=== PATIENT | male | born 1995 | race Hispanic/Latino ===

== ENCOUNTER 2022-06-05 09:46 | Emergency (ER) | payer SELFPAY ==
[2022-06-05 11:04] LABS: Basophils # (Auto) 0.1 K/mm3 (0.0-0.1); Basophils % (Auto) 0.9 % (0.0-1.8); Eosinophils # (Auto) 0.2 K/mm3 (0.0-0.4); Eosinophils % (Auto) 3.3 % (0.0-4.3); Hematocrit 42.9 % (35.5-45.6); Hemoglobin 15.1 gm/dl (11.8-15.2); Lymphocytes # (Auto) 1.2 K/mm3 (1.2-5.4); Lymphocytes % (Auto) 16.8 % (13.4-35.0); Mean Corpuscular HGB Conc 35 % (32-34); Mean Corpuscular Volume 84 fl (84-94); Monocytes # (Auto) 0.5 K/mm3 (0.0-0.8); Platelet Count 138 K/mm3 (140-440); Red Blood Count 5.12 M/mm3 (3.65-5.03); Red Cell Distribution Width 13.5 % (13.2-15.2)
[2022-06-05] MEDS ORDERED: SODIUM CHLORIDE 0.9% 1000 ML 1,000 ML IV ONE ×2 (12:03→13:47)
--- NOTE | 2022-06-05 12:29 | Emergency Department Report ---
ED Syncope HPI - General Chief Complaint: Syncope Stated Complaint: WEAKNESS/SYNCOPAL EPISODE Time Seen by Provider: 06/05/22 10:42 - History of Present Illness Initial Comments: Patient is a 26-year-old male brought in by EMS status post syncopal event. States he was preparing to weed whack when he had a sudden episode of nausea vomiting. States he panicked and began to hyperventilate and eventually passed out. He denies any past medical history. Denies any chest pain, palpitations or shortness of breath. - Related Data Allergies/Adverse Reactions: Allergies No Known Allergies Allergy (Unverified 06/05/22 09:58) Home Medications: Ambulatory Orders No Known Home Medications [No Reported Home Medications] 06/05/22 ED Review of Systems ROS: Stated complaint: WEAKNESS/SYNCOPAL EPISODE Other details as noted in HPI Constitutional: denies: chills, fever Respiratory: denies: cough, shortness of breath, wheezing Cardiovascular: denies: chest pain, palpitations Gastrointestinal: denies: abdominal pain, nausea, diarrhea Genitourinary: denies: urgency, dysuria Musculoskeletal: denies: back pain, joint swelling, arthralgia Skin: denies: rash, lesions Neurological: denies: headache, weakness, paresthesias Psychiatric: denies: anxiety, depression ED Past Medical Hx - Past Medical History Previous Medical History?: No - Medications Home Medications: Home Medications Medication Instructions Recorded Confirmed Last Taken Type No Known Home Medications [No 06/05/22 06/05/22 Unknown History Reported Home Medications] ED Physical Exam - General Limitations: No Limitations General appearance: alert, in no apparent distress - Head Head exam: Present: atraumatic, normocephalic - Respiratory Respiratory exam: Present: normal lung sounds bilaterally. Absent: respiratory distress - Cardiovascular Cardiovascular Exam: Present: regular rate, normal rhythm, normal heart sounds - GI/Abdominal GI/Abdominal exam: Present: soft. Absent: distended, tenderness - Rectal Rectal exam: Present: deferred - Neurological Exam Neurological exam: Present: alert, oriented X3 - Psychiatric Psychiatric exam: Present: normal affect, normal mood - Skin Skin exam: Present: warm, dry, intact, normal color ED Course Vital Signs 06/05/22 06/05/22 06/05/22 09:46 10:11 10:16 Temperature 98.3 F Pulse Rate 67 79 Respiratory 16 18 Rate Blood Pressure 119/80 Blood Pressure 134/81 [Left] O2 Sat by Pulse 99 98 98 Oximetry 06/05/22 06/05/22 06/05/22 10:30 10:46 11:00 Temperature Pulse Rate 87 82 71 Respiratory 20 21 16 Rate Blood Pressure 119/80 111/77 111/77 Blood Pressure [Left] O2 Sat by Pulse 98 99 100 Oximetry 06/05/22 06/05/22 06/05/22 11:16 11:26 11:30 Temperature Pulse Rate 69 73 Respiratory 22 21 Rate Blood Pressure 111/77 113/73 Blood Pressure [Left] O2 Sat by Pulse 98 99 99 Oximetry 06/05/22 06/05/22 06/05/22 11:46 12:00 12:16 Temperature Pulse Rate 76 63 55 L Respiratory 16 19 18 Rate Blood Pressure 108/76 108/76 108/76 Blood Pressure [Left] O2 Sat by Pulse 99 99 100 Oximetry 06/05/22 12:30 Temperature Pulse Rate 62 Respiratory 21 Rate Blood Pressure 108/76 Blood Pressure [Left] O2 Sat by Pulse 100 Oximetry ED Medical Decision Making - Lab Data Result diagrams: 06/05/22 10:51 - EKG Data -: EKG Interpreted by Tn EKG shows normal: sinus rhythm, axis, intervals, QRS complexes, ST-T waves Rate: bradycardia - EKG Data 06/05/22 14:25 Sinus arrhythmia - Medical Decision Making While performing orthostatics. Patient's pulse increased from 70s to 110s. Patient given 1 L bolus with similar change in pulse on repeat orthostatics. Hospitalist consulted for admission. Requested additional 1 L bolus and will evaluate in the emergency department. Critical care attestation.: If time is entered above; I have spent that time in minutes in the direct care of this critically ill patient, excluding procedure time. ED Disposition Clinical Impression: Orthostatic syncope Disposition: 01 HOME / SELF CARE / HOMELESS Is pt being admited?: No Condition: Stable Instructions: Syncope (ED), Orthostatic Hypotension Referrals: TARA SCHMIDT MD [Primary Care Provider] - 3-5 Days Forms: AMA Form Time of Disposition: 14:37
--- NOTE | 2022-06-05 14:35 | Event Note ---
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
[2022-06-05 15:26] VITALS: BP 131/77
--- NOTE | 2022-06-09 09:34 | Electrocardiograph Report ---
[facility] Test Date: 2022-06-05 Test Time: 12:33:41 Pat Name: SALOME JHAVERI Department: Room: Gender: M [employer]: CIRO : 1995 Requested By: DEQUAN KAPADIA Order Number: [id number] Reading MD: Ranjeet Wells Measurements Intervals [place] Rate: 56 P: 8 MA: 158 QRS: 12 QRSD: 103 T: 32 QT: 432 QTc: 419 Interpretive Statements Slow sinus arrhythmia No previous ECG available for comparison Electronically Signed On 06-09-2022 9:34:00 EDT by Ranjeet Wells
== END 2022-06-05 15:28 | disposition home or self-care (01) ==
LOC: ED 09:46
DX: R55 Syncope and collapse (principal)
CPT/HCPCS: 36415; 84484; 85025; 93005; 96360; 96361; 99284; J7030; 99283